=== PATIENT | male | born 1955 | race Caucasian/White ===

== ENCOUNTER 2016-04-30 16:26 | Emergency (ER) | payer OTHER, BC ==
[~2016-04-30] VITALS: Ht 177.8 cm; Wt 76.0 kg
[~2016-04-30 16:26] MED LIST: ASPI81TA82 PO; ATOR10TA PO; CARV3.12 PO; HYDR30CR2 PR; LISI-589 PO; LUMI0.01 EACH EYE; NITR0.4S SL; PRAS10TA PO
[2016-04-30 16:36] VITALS: BP 169/85; PULSE 88; RESP 18; TEMP 98.4; O2SAT 97
[2016-04-30 16:41] VITALS: BP 169/85; PULSE 92; RESP 18; TEMP 98.3; O2SAT 97
[2016-04-30] MEDS ORDERED: LIDOCAINE 1%/EPINEPHrine 1:100,000 SOLN 20 ML VIAL INFIL ONE (16:45)
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
[2016-04-30] MEDS ORDERED: MORPHINE SULFATE 8 MG/ML INJ IV PUSH ONE (17:00)
[2016-04-30] MEDS ORDERED: ONDANSETRON HCL 4 MG/2 ML VIAL IVP ONE (17:00)
[2016-04-30 17:10] LABS: BASOPHIL # 0.1 TH/MM3 (0-0.2); BASOPHIL % 0.6 % (0.0-2.0); EOSINOPHIL # 0.2 TH/MM3 (0-0.4); EOSINOPHIL % 2.4 % (0.0-4.0); HEMATOCRIT 47.1 % (39.0-51.0); HEMO FLAGS DIFF FINAL; LYMPH % 31.5 % (9.0-44.0); LYMPHOCYTE # 2.7 TH/MM3 (1.0-4.8); MEAN CELL VOLUME 85.3 FL (80.0-100.0); MEAN CORPUSCULAR HEMOGLOBIN 29.2 PG (27.0-34.0); MEAN CORPUSCULAR HGB CONC 34.2 % (32.0-36.0); MONO % 6.7 % (0.0-8.0); NEUT % 58.8 % (16.0-70.0); PLATELET COUNT 257 TH/MM3 (150-450); RED BLOOD COUNT 5.52 MIL/MM3 (4.50-5.90); RED CELL DISTRIBUTION WIDTH 12.9 % (11.6-17.2); WHITE BLOOD COUNT 8.5 TH/MM3 (4.0-11.0)
[2016-04-30 17:18] LABS: APTT (PATIENT) 25.9 SEC (24.3-30.1); PROTHROMBIN TIME - PATIENT 11.2 SEC (9.8-11.6)
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
[2016-04-30 17:28] LABS: BICARBONATE 29.1 MEQ/L (21.0-32.0); POTASSIUM 3.9 MEQ/L (3.5-5.1)
[2016-04-30 17:30] VITALS: BP 148/80; PULSE 82; RESP 18; O2SAT 97
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
[2016-04-30] MEDS ORDERED: HYDR-3533 PO (19:08)
[2016-04-30 19:25] VITALS: BP 133/79; PULSE 100; RESP 18; O2SAT 95
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
[2016-04-30] MEDS ORDERED: CEPH-460 PO (20:09)
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
[2016-04-30] MEDS ORDERED: TETANUS/DIPHTHERIA TOXOID ADULT 0.5 ML VIAL IM ONE (20:15)
[2016-04-30 20:19] VITALS: BP 128/79
== END 2016-04-30 20:21 | disposition home or self-care (01) ==
LOC: NEPC 16:26
DX: S01.81XA Laceration without foreign body of other part of head, initial encounter (principal); Z23 Encounter for immunization; S16.1XXA Strain of muscle, fascia and tendon at neck level, initial encounter; S80.00XA Contusion of unspecified knee, initial encounter; M54.5 Low back pain; E78.00 Pure hypercholesterolemia, unspecified; I10 Essential (primary) hypertension; Z79.02 Long term (current) use of antithrombotics/antiplatelets; I25.2 Old myocardial infarction; V43.52XA Car driver injured in collision with other type car in traffic accident, initial encounter; Y93.89 Activity, other specified; Y92.410 Unspecified street and highway as the place of occurrence of the external cause
CPT/HCPCS: 12013; 70450; 70486; 71010; 72100; 72125; 73590; 80048; 85025; 85610; 85730; 90471; 90714; 96374; 96375; 99284; J2270; J2405

== ENCOUNTER 2016-05-07 10:12 | Emergency (ER) | payer OTHER, BC ==
[~2016-05-07] VITALS: Ht 170.2 cm; Wt 73.0 kg
[~2016-05-07 10:12] MED LIST changes: +CEPH-460 PO; +HYDR-3533 PO
[2016-05-07 10:17] VITALS: BP 163/86; PULSE 64; RESP 16; TEMP 97.9; O2SAT 96
[2016-05-07] MEDS ORDERED: ONDANSETRON ODT 4 MG TAB PO/SL ONE (13:00)
[2016-05-07] MEDS ORDERED: MECLIZINE HCL 25 MG TAB PO ONE (13:00)
[2016-05-07 13:09] VITALS: BP_SYST 150; BP_SYST 157; BP_DIAS 76
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
[2016-05-07 13:32] LABS: AUTOMATED NEUTROPHIL # 3.3 TH/MM3 (1.8-7.7); BASOPHIL # 0.1 TH/MM3 (0-0.2); BASOPHIL % 1.3 % (0.0-2.0); EOSINOPHIL # 0.2 TH/MM3 (0-0.4); HEMATOCRIT 42.8 % (39.0-51.0); HEMO FLAGS DIFF FINAL; LYMPH % 29.4 % (9.0-44.0); LYMPHOCYTE # 1.6 TH/MM3 (1.0-4.8); MEAN CELL VOLUME 85.4 FL (80.0-100.0); MEAN CORPUSCULAR HEMOGLOBIN 28.9 PG (27.0-34.0); MEAN CORPUSCULAR HGB CONC 33.9 % (32.0-36.0); MONO % 8.1 % (0.0-8.0); NEUT % 58.2 % (16.0-70.0); PLATELET COUNT 248 TH/MM3 (150-450); RED BLOOD COUNT 5.01 MIL/MM3 (4.50-5.90); WHITE BLOOD COUNT 5.6 TH/MM3 (4.0-11.0)
--- NOTE | 2016-05-07 13:37 | RADRPT ---
EXAM DATE/TIME: 05/07/2016 13:33 [facility] COMPARISON: CHEST SINGLE AP, July 02, 2015, 12:45. INDICATIONS : Syncope. MEDICAL HISTORY : Myocardial infarction. SURGICAL HISTORY : Coronary artery stent. ENCOUNTER: Initial ACUITY: 2 days PAIN SCORE: 0/10 LOCATION: Bilateral chest FINDINGS: PA and lateral views of the chest demonstrate the lungs to be symmetrically aerated without evidence of infiltrate or effusion. A 9 mm nodular density projects over the left lung base. This area was par tially obscured by the diaphragm on the prior study. The cardiomediastinal contours are unremarkable . Osseous structures are intact. CONCLUSION: 9 mm nodular density within the left lung base. An outpatient followup CT scan of the thorax is sugge sted to further characterize this lesion. Rene Mccray Jr., MD on May 07, 2016 at 13:34 Board Certified Radiologist. This report was verified electronically.
[2016-05-07 13:41] LABS: APTT (PATIENT) 28.1 SEC (24.3-30.1); PROTHROMBIN TIME - PATIENT 11.5 SEC (9.8-11.6)
[2016-05-07 13:49] LABS: ALT (GPT) 30 U/L (12-78); ANION GAP 6 MEQ/L (5-15); AST (GOT) 21 U/L (15-37); BICARBONATE 27.7 MEQ/L (21.0-32.0); BLOOD UREA NITROGEN 11 MG/DL (7-18); CHLORIDE 105 MEQ/L (98-107); GLOMERULAR FILTRATION RATE 90 ML/MIN (>89); MAGNESIUM 2.2 MG/DL (1.5-2.5); POTASSIUM 4.2 MEQ/L (3.5-5.1); SODIUM (NA) 139 MEQ/L (136-145)
[2016-05-07 13:53] LABS: ALKALINE PHOSPHATASE 45 U/L (45-117); CREATINE KINASE 113 U/L (39-308); TOTAL BILIRUBIN ADULT 0.9 MG/DL (0.2-1.0)
[2016-05-07 14:05] LABS: CKMB LESS THAN 0.5 NG/ML (0.5-3.6)
[2016-05-07 14:25] VITALS: BP 145/78; PULSE 87; RESP 20; O2SAT 99
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
[2016-05-07] MEDS ORDERED: ZOFR4TAB3 SL (15:31)
[2016-05-07] MEDS ORDERED: MECL-62 PO (15:31)
--- NOTE | 2016-05-08 12:58 | EKG ---
Date Performed: 05/07/2016 Time Performed: 13:48:09 PTAGE: 61 years EKG: SINUS BRADYCARDIA PATTERN CONSISTENT WITH PULMONARY DISEASE INCOMPLETE RIGHT BUNDLE BRANCH BLOCK LEFT ANTERIOR FASCICULAR BLOCK ABNORMAL ECG PREVIOUS TRACING : 05/07/2016 13.47 Since previous tracing, no significant change noted DOCTOR: Florin Bruno Interpretating Date/Time 05/11/2016 09:22:37
== END 2016-05-07 16:16 | disposition home or self-care (01) ==
LOC: NETRI 10:12
DX: R42 Dizziness and giddiness (principal); F07.81 Postconcussional syndrome; R91.1 Solitary pulmonary nodule; R00.1 Bradycardia, unspecified; R53.83 Other fatigue; R51 Headache; M54.2 Cervicalgia; R94.31 Abnormal electrocardiogram [ECG] [EKG]; I10 Essential (primary) hypertension; Z79.01 Long term (current) use of anticoagulants; Z72.0 Tobacco use; V89.2XXA Person injured in unspecified motor-vehicle accident, traffic, initial encounter; Y92.410 Unspecified street and highway as the place of occurrence of the external cause
CPT/HCPCS: 70450; 71020; 80053; 82550; 82552; 83690; 83735; 84484; 85025; 85610; 85730; 93005

== ENCOUNTER 2016-05-12 07:55 | Emergency (ER) | payer OTHER, BC ==
[~2016-05-12] VITALS: Ht 170.2 cm; Wt 75.0 kg
[~2016-05-12 07:55] MED LIST changes: +MECL-62 PO; +ZOFR4TAB3 SL
[2016-05-12 07:58] VITALS: BP 141/81; PULSE 83; RESP 16; TEMP 98.1; O2SAT 98
--- NOTE | 2016-05-12 08:42 | PD ---
HPI Chief Complaint: Wound/Suture/Staple Re-Check Time Seen by Provider: 08:41 Travel History International Travel<30 days: No Contact w/Intl Traveler<30days: No Traveled to known affect area: No History of Present Illness HPI 61-year-old male presents to the emergency department for suture removal to his right jaw line. Sutures were placed on peppering ninth. He denies fever, chills, nausea, vomiting. Denies drainage from the site. Reports anticoagulants; EFFIENT. No known allergies. Primary care provider is in [place]. No other modifying factors or associated signs and symptoms. PFSH Past Medical History Hx Anticoagulant Therapy: Yes (EFFIENT) Asthma: No Blood Disorders: No Heart Rhythm Problems: Yes (palpitations) Cancer: No Cardiac Catheterization: Yes Cardiovascular Problems: Yes ([place] 06/2015 ) High Cholesterol: Yes Chest Pain: Yes Congestive Heart Failure: No COPD: No Diminished Hearing: No Endocrine: No Gastrointestinal Disorders: No Glaucoma: Yes Genitourinary: No Hypertension: Yes Immune Disorder: No Implanted Vascular Access Dvce: Yes Musculoskeletal: Yes (arthritis--back, knees ) Neurologic: No Psychiatric: No Reproductive: No Respiratory: Yes (SOB x 1 year ) Sleep Apnea: No Past Surgical History Body Medical Devices: stent x 2 (cardiac) Cardiac Surgery: Yes (STENTS 06/25/15 AND 06/27/15) Cholecystectomy: No Coronary Stent: Yes (06/25/15 AND 06/27/15) Tonsillectomy: Yes Other Surgery: Yes (tonsillectomy, pylonidal cyst, heart stents (2015)) Social History Alcohol Use: No Tobacco Use: Yes (OCC CIGAR) Substance Use: No Allergies-Medications (Allergen,Severity, Reaction): Coded Allergies: No Known Allergies (Unverified , 05/12/16) Reported Meds & Prescriptions Reported Meds & Active Scripts Active Review of Systems Except as stated in HPI: all other systems reviewed are Neg Physical Exam Narrative GENERAL: Well-nourished, well-developed male patient, in no acute distress SKIN: Warm and dry. Laceration to the right jaw line that is well approximated and with sutures intact; without erythema, edema, drainage. No signs of infection. HEAD: Atraumatic. Normocephalic. EYES: Pupils equal and round. No scleral icterus. No injection or drainage. ENT: Mucosa pink and moist. Airway patent. NECK: Trachea midline. CARDIOVASCULAR: Regular rate. RESPIRATORY: No accessory muscle use. GASTROINTESTINAL: Flat. MUSCULOSKELETAL: No obvious deformities. No clubbing. No cyanosis. No edema. NEUROLOGICAL: Awake and alert. Oriented 3. No obvious cranial nerve deficits. Motor grossly within normal limits. Normal speech. PSYCHIATRIC: Appropriate mood and affect; insight and judgment normal. Data Data Last Documented VS Vital Signs Date Time Temp Pulse Resp B/P Pulse Ox O2 Delivery O2 Flow Rate FiO2 05/12/16 07:58 98.1 83 16 141/81 98 MDM Medical Decision Making Medical Screen Exam Complete: Yes Emergency Medical Condition: Yes Medical Record Reviewed: Yes Differential Diagnosis Suture removal, laceration, wound recheck Narrative Course 61-year-old male presents for removal of sutures to right jawline. Sutures were placed on April 30. Laceration is well approximated and sutures intact. No signs of infection. I did remove the sutures and the laceration opened up slightly without any bleeding or purulent drainage. The edges appear healed, but not well approximated. I applied Steri-Strips and instructed patient to remove slowly remove the Steri-Strips in one week. He verbalized understanding and agreement with treatment plan. Patient is medically cleared and stable for discharge. Discussed reasons to return to the emergency department. Instructed patient to follow up with primary care provider. Patient agrees with treatment plan. The patients vital signs are stable and the patient is stable for outpatient follow-up and treatment. Patient discharged home, stable and in no acute distress. Diagnosis Primary Impression: Encounter for removal of sutures Referrals: Primary Care Physician Patient Instructions: General Instructions, Stitches Removal (ED) Additional Instructions: Keep area clean and dry Remove Steri-Strips in one week Follow-up with primary care provider Return to the emergency department immediately with worsening of symptoms Med/Other Pt SpecificInfo: No Change to Meds, No Meds Exist/No RX given Disposition: DISCHARGE HOME Condition: Stable Jill Durant May 12, 2016 08:42
== END 2016-05-12 09:20 | disposition home or self-care (01) ==
LOC: NEPB 07:55
DX: Z48.02 Encounter for removal of sutures (principal)
CPT/HCPCS: 99281